=== PATIENT | female | born 1990 ===

== ENCOUNTER 2025-06-15 15:51 | Emergency (ER) | payer OTHER, SELFPAY ==
--- OUTSIDE RECORDS SUMMARY | 2025-06-15 15:53 | XMS_ITS | Data Portability ---
Author Organization [facility] [employer] Pritesh freitas [facility] Address [address] [place] [address] [place] [address] Assessment No assessment recorded. Plan of Treatment Reminders Order Date Submit Date Provider Last Modified By Organization Details Last Modified Time Details Appointments None recorded. Lab None recorded. Referral None recorded. Procedures None recorded. Surgeries None recorded. Imaging None recorded. Medication Orders dexamethaso ne 4 mg tablet [address], [address], 14:26:27 Patient TargetsNo targets recorded. Patient InstructionsNo instructions recorded. Reason for Referral None Reported. Medical Equipment None Reported. Medications Name Sig Start Date Stop Date Status Note LastModified by Organization Details LastModified Time dexamethason e 4 mg tablet TAKE 1 TABLET BY MOUTH EVERY DAY FOR 2 DAYS, NEEDED, FOR PERSISTENT HEADACHES. active Not Available Not Available N ot Available Vitals Date Recorded Oxygen saturation Oxygen saturation in Arterial blood by Pulse oximetry Heart rate Body temperature Body height Body mass index (BMI) Body weight Systolic And Diastolic Provider Name and Address Organization Details Last Updated DateTime 5 99 % 99 % 84 /min 98.5 [degF] 163.83 cm 31.1 kg/m2 57254.3 6 g 93/66 mm[Hg] Carisa Gold [facility] [employer] Benji 5 12:25:56 Social History None recorded. Functional Status None recorded. Mental Status None recorded. Family History Nothing Reported. Medical History No medical history recorded. Gynecological HistoryNo gynecological history recorded. Obstetrics History GPAL:G 0 P 0 0 0 0 Immunizations Vaccine Type Date Status Note Provider Josué Address Organization Details Recorded Time Hep B, adolescent or pediatric 6 completed Not Available [facility] 02/07/2025 12:14:48 MMR 6 completed Not Available [facility] 02/07/2025 12:14:48 Tdap 6 completed Not Available [facility] 02/07/2025 12:14:48 DTaP 0 completed Not Available [facility] 02/07/2025 12:14:48 DTaP 1 completed Not Available [facility] 02/07/2025 12:14:48 DTaP 1 completed Not Available [facility] 02/07/2025 12:14:48 Td (adult), 2 Lf tetanus toxoid, preservative free, adsorbed 1 completed Not Available [facility] 02/07/2025 12:14:48 polio, unspecified formulation 0 completed Not Available [facility] 02/07/2025 12:14:48 polio, unspecified formulation 1 completed Not Available [facility] 02/07/2025 12:14:48 polio, unspecified formulation 1 completed Not Available [facility] 02/07/2025 12:14:48 polio, unspecified formulation 1 completed Not Available [facility] 02/07/2025 12:14:48 MMR 1 completed Not Available [facility] 02/07/2025 12:14:48 Hep B, adolescent or pediatric 6 completed Not Available [facility] 02/07/2025 12:14:48 Hep B, adolescent or pediatric 6 completed Not Available [facility] 02/07/2025 12:14:48 Influenza, split virus, trivalent, preservative 9 completed Not Available [facility] 02/07/2025 12:14:48 Novel [id number] , all formulations 9 completed Not Available [facility] 02/07/2025 12:14:48 Tdap 9 completed Not Available [facility] 02/07/2025 12:14:48 Influenza, split virus, quadrivalent, preservative 9 completed Not Available [facility] 02/07/2025 12:14:48 COVID-19, mRNA, LNP-S, PF, 30 mcg/0.3 mL dose 1 completed Not Available [facility] 02/07/2025 12:14:48 COVID-19, mRNA, LNP-S, PF, 30 mcg/0.3 mL dose 2 completed Not Available [facility] 02/07/2025 12:14:48 Past Encounters Encounter ID Performer Location Encounter Start Date Encounter Closed Date Diagnosis/Indication Diagnosis SNOMED-CT Code Diagnosis ICD10 Code Diagnosis IMO Codes Diagnosis Note [id number] Pam Dixon MD [facility] [address] [place] [address] 02/07/2025 12:13:17 02/07/2025 13:02:16 Migraine 26746851 G43.909 24888 - discussed options (triptan, steroid for long-lasti ng symtpoms, APAP, sleep)- would like to trial short course of steroids, will let me know if ineffectiv e History an d physical examination, annual for health maintenance 61721662 Z00.00 289842 - feeling good, defers annual labs- mammograms at 40, pap and Mirena swap 2025 Health Concerns Section Related Observation LastModified by Organization Detai ls LastModified Time None Recorded Concern Status LastModified by Organization Details LastModified Time None Recorded Advance Directives Directive None Recorded Payers Insurance Date Sequence Insurance Name Policy Number Policy Plasencia Covered Member ID Plasencia Member ID Guarantor Name 12/09/2024 SLIDING FEE SCHEDULE - DISCOUNT Montserrat Fleming Notes Date Note Type Note Provider Name and Address Organization Details Recorded Time 02/07/2025 text/html ROS as noted in the HPI Montserrat is in for annual exam.Previously seen at [facility], chart reviewed.Genera lly healthy.Has had Mirena in since 2019, last pap in 2020 and wnl.Due for repeat pap + Mirena change next year. Notes a history of headaches/migra albino that occur 2-3 times/year. Sleep tends to help when symptoms are severe (not always possible at home with children; also works at a [employer] with early hours). Pam Dixon MD [address] [place], [address], [facility] - [facility] 02/07/2025 15:45:28 OBGyn Episode No OBEpisode recorded.
--- OUTSIDE RECORDS SUMMARY | 2025-06-15 15:53 | XMS_ITS | Clinical Summary ---
Author Organization [facility] Address [address] [place] [address] Care Team Providers Care History Faculty Member Name Role Phone Clinic, [facility]ider Allergies No known active allergies Medications acetaminophen (TYLENOL EXTRA STRGTH) 500 mg tabletIndicati ons:S/P Take 2 tablets by mouth every 6 hours if needed (mild pain). Max acetaminophen dose: 4000mg in 24 hrs. 60 tablet 07/10/2019 10:22 AM CDT 9 Active ibuprofen (ADVIL; MOTRIN) 600 mg tabletIndicati ons:S/P Take 1 tablet by mouth every 6 hours if needed for uterine cramping. Take with food. 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 Plan: Routine Screening Resolved Problems Problem Noted Date Diagnosed Date Resolved Date Breech presentation of fetus delivered 07/08/2019 06/03/2021 care, subsequent pr egnancy in third trimester 06/06/2019 06/03/2021 Low grade squamous intraepit helial lesion (LGSIL) on cervical Pap smear 07/12/2014 09/08/2017 Overview (12/03/2015): 11/25/2015 Pap: NIL; Plan: repeat pap test in one year (Due 11/2016) Immunizations Immunization Administration Dates Next Due DTaP 01/11/1991,1990,1990 Hepatitis B (Peds) 08/16/2006,06/16/2006, 006 Influenza A (H1N1), Live Intranasal 08/12/2009 Influenza, IIV3 (Age >=3 years) 07/14/2009 Influenza, IIV4 (=>6mos) MDV 06/06/2019 MMR 04/19/2006,08/28/1991 Polio Virus, Unspecified 08/28/1991,11/1990,1990, 990 Td (Age >=7 Years) 08/28/1991 Tdap 05/09/2019,04/19/2006 Family History Medical History Relation Name Comments Good Health Brother Heart Disease Maternal Grandfather Obesity Maternal Grandmother Good Health Mother Good Health Sister Relation Name Status Comments Brother Alive Father (Age 47) HIV Maternal Grandfather Alive Maternal Grandmother Mother Alive Paternal Grandfather Paternal Grandmother Sister Alive Social History Tobacco Use Types Packs/Day Years Used Date Smoking Tobacco: Never Smokeless Tobacco: Never Tobacco Cessation:Counseling Given: Yes Alcohol Use Standard Drinks/Week Comments No 0 (1 standard drink = 0.6 oz pur e alcohol) PHQ-2 Answer Date Recorded PHQ-2 TOTAL SCORE 1 06/03/2021 Social Connections Answer Date Recorded Frequency of Communication with Friends and Fami ly Not on file 12/11/2023 Financial Resource Strain Answer Date R ecorded Difficulty of Paying Living Expenses 3 12/02/2022 Difficulty of Paying Living Expenses Not on file 12/02/2022 Food Insecurity Answer Date Recorded Worried About Running Out of Food in the Last Ye ar 1 12/02/2022 Transportation Needs Answer Date Record ed Lack of Transportation (Medical) 1 12/02/2022 Housing Stability Answer Date Recorded Unable to Pay for Housing in the Last Year 1 12/02/2022 Comments No Sex and Gender Information Value Date Recorded Sex Assigned at Not on file 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 Gender Identity Not on file Sexual Orientation Not on file Obstetrics History Para Term AB IAB SAB Ectopic Multiple Livin g Live Births 3 2 2 1 1 2 2 Date Outcome GA Total Labor Labor/2nd/3rd Weight Sex Type Anes PTL Hannah A1 A5 Name Clin SAB SPONTA NEOUS 2008 Term 40w 1d M Vag-Sp ont Livin g 2018 Term 39w 0d 3.47 kg (7 lb 10.4 oz) M CS-LTr anv Genera l N Livin g [address] MD Complications:Delivery by em ergency (HC) Delivery Location:[facility]) Comments:Emergent cesa rean section for unidentified breech presentation Last Filed Vital Signs Vital Sign Reading Time Taken Comments Blood Pressure 116/74 12/02/2022 2:28 PM CDT Pulse 77 12/02/2022 2:28 PM CDT Temperature 37.2 C (99 F) 12/02/2022 2:28 PM CDT Respiratory Rate 16 07/11/2019 7:15 AM CDT Oxygen Saturation 97% 12/02/2022 2:28 PM CDT Inhaled Oxygen Concentration - - Weight 82.8 kg (182 lb 9.6 oz) 12/02/2022 2:28 P M CDT Height 161.5 cm (5' 3.58) 06/03/2021 3:30 PM CD T Body Mass Index 31.76 06/03/2021 3:30 PM CDT Plan of Treatment Health Maintenance Due Date Last Done Comments Depression screening for age 12+ 2002 HPV series for age 9-45 (1 - 3-dose SCDM series) 2017 BMI (ht and wt on same day) for age 18+ 06/03/2022 06/03/2021, 07/08/2019, 06/20/2019, Additional history exists COVID-19 vaccine series ( - 2024- season) 2025 10/06/2021, 08/19/2021 Influenza Vaccine (#1) 2025 06/06/2019, 2008 Pap test for age 21-65 06/03/2026 , 06/03/2021, 08/18/2017, Additional history exists Tetanus booster 05/09/2029 05/09/2019, 08/0 05/2006, 08/28/1991 RSV vaccine for adults or (1 - 1-dose 75+ series) 2065 Hepatitis B series for 19+ Completed 08/16, 06/16/2006, 04/19/2006 HIV for age 15-65 Completed 11/29/2018, 03/15/2013 Hepatitis C screening for age 18-79 Completed 11/29/2018 Pneumococcal series for age 6-49 Aged Out No longer eligible based on patient's age to complete this topic Procedures Procedure Name Priority Date/Time Associated Diagnosis Comments ELECTRICAL ASSISTANT THIN PREP PAP SCREEN IMAGED Routine 06/03/2021 3:46 PM CDT Screening for malignant neoplasm of cervix ANTI HIV 1/2 Routine 11/29/2018 10:34 AM CDT care of multigravida, antepartum (HC) ANTI HCV Routine 11/29/2018 10:34 AM CDT care of multigravida, antepartum (HC) from Last 3 Months or Most Recently Relevant to Health Maintenance Results * ELECTRICAL ASSISTANT THIN PREP PAP SCREEN IMAGED (06/03/2021 3:46 PM CDT) Case Report Gynecologic Cytology Report Case: [id number] Authorizing Provider: Shanna Boykin PA Collected: 06/03/2021 1546 Ordering Location: [facility] Received: 06/03/2021 1608 Clinic First Screen: Ronny Abdalla Rescreen: Callie Martinez Specimen: ELECTRICAL ASSISTANT ThinPrep Vial Screening, Cervical 06/21/2021 2:29 PM CDT [facility] INTERPRETATION/ RESULT NEGATIVE FOR INTRAEPITHELIAL LESION OR MALIGNANCY (NIL) (none) 06/21/2021 2:29 PM CDT [facility] at 1429 CDT SPECIMEN ADEQUACY Satisfactory for evaluation No endocervical component seen 06/21/2021 2:29 PM CDT [facility] ENTRAL LABORATORY HPV REQUEST HPV and PAP 06/21/2021 2:29 PM CDT [facility] Date of LMP 05/24/21 06/21/2021 2:29 PM CDT [facility] Last Pap Date 08/18/17 06/21/2021 2:29 PM CDT [facility] Last Pap Result NIL 2:29 PM CDT [facility] Abnormal Pap or [place] Bx in last 5 years No 06/21/2021 2:29 PM CDT [facility] Menstrual Status Irregular Periods 06/21/2021 2:29 PM CDT [facility] [place] Bx Done Today No 06/21/2021 2:29 PM CDT [facility] Additional Information None given 06/21/2021 2:29 PM CDT [facility] Comment: Cytology is screened at [facility] - [address] [address] and [facility] - [address] [place] [address] and [facility] - [address] [place] [address] Interpreted at [facility] - [address], [place] [address] Automated Review Successful 06/21/2021 2:29 PM CDT [facility] Comment:Specimen processed s uccessfully by automated security sales consultant device, ThinPrep Imaging System, [employer] ANCILLARY TESTING ELECTRICAL ASSISTANT HPV Ordered, Please see separate report 06/21/2021 2:29 PM CDT [facility] Note The pap test is a screening technique, not a diagnostic procedure. It is used primarily to screen for squamous cancers and precursor lesions. Published studies have shown that it is subject to both false negative and false positive results. The pap test should not be used as the sole means to diagnose or exclude pre-malignant and malignant lesions. 06/21/2021 2:29 PM CDT [facility] Other (Cervical) Non-Blood / Unknown 06/03/2021 3:46 PM CDT 06/03/2021 4:08 PM CDT Shanna MAYA PATHOLOGY/CYTOLOGY Final R esult [facility] [address] [place] [address], [place] * ANTI HCV (11/29/2018 10:34 AM CDT) HEPATITIS C ANTIBODY Non-React lillie Non-React lillie 11/29/2018 4:19 PM CDT [facility] TR[facility] LABORATORY Comment:Antibodies to HCV no t detected; does not exclude the possibility of exposure to HCV. Blood BLOOD SPECIMEN / Unknown Venipuncture / Unknown 11/29/2018 10:34 AM CDT 11/29/2018 10:39 AM CDT Naida Dinero MD SEND OUTS Final Result Performing Organization Address City/[facility]/ZIP Co de Phone Number [facility] [address] [place] [address], [place] * ANTI HIV 1/2 (11/29/2018 10:34 AM CDT) Pathologist [facility] HIV-1/HIV-2 ANTIBODY Non-Reacti ve Non-Reacti ve 11/29/2018 4:20 PM CDT [facility] TR[facility] Comment:HIV-1 p24 and HIV-1/ HIV-2 Ab not detected. Blood BLOOD SPECIMEN / Unknown Venipuncture / Unknown 11/29/2018 10:34 AM CDT 11/29/2018 10:39 AM CDT Naida Dinero MD SEND OUTS Final Result [facility] [address] [place] [address], [place] from Last 3 Months or Most Recently Relevant to Health Maintenance Insurance [facility] * Guarantor: [employer] Account Type Relation to Patient Date of Phone Billing Address [facility] 2000 ATTN VERONICA SZYMANSKI [address] [place] [phone] Advance Directives * Full Code (Latest Code Status on File) Date Activated Date Inactivated Comments 07/08/2019 8:46 PM 07/11/2019 2:51 PM Care Teams History Faculty Member Relationship Specialty Start Date End Date Clinic, [facility] [address] [facility] [place] [place] [address] PCP - General 04/28/21
[2025-06-15 15:58] VITALS: BP 128/79; PULSE 78; RESP 16; TEMP 36.6; O2SAT 97; BMI 32.9
--- NOTE | 2025-06-15 16:26 | CRLHL7_ITS ---
For Patients: As a result of the Century Cures Act, medical imaging exams and procedure reports are released immediately into your electronic medical record. You may view this report before your referring provider. If you have questions, please contact your health care provider. Indication: RIGHT FLANK PAIN Technique: CT abdomen/pelvis without IV contrast Comparison: None Findings: Lower thorax: Unremarkable Abdomen/pelvis: The liver, gallbladder and biliary system, spleen, pancreas, adrenal glands, kidneys, ureters, bladder, uterus, and bilateral ovaries are unremarkable. No bowel obstruction or inflammation. The appendix is normal. No free air, free fluid, or fluid collections. No abdominopelvic lymphadenopathy. The vasculature is unremarkable. Soft tissue/musculoskeletal: Diastasis recti with tiny fat containing umbilical hernia. Small calcified granuloma in the subcutaneous fat of the left posterior pelvis. The bones are unremarkable. Impression: No CT evidence of an acute process involving the abdomen or pelvis. Please note that all CT scans at this facility use dose modulation, iterative reconstruction, and/or weight-based dosing when appropriate to reduce radiation dose to as low as reasonably achievable. Dictated by Wilver Garrett MD @ 06/15/2025 5:18:03 PM (Electronically Signed)
[2025-06-15 16:46] LABS: Appearance Urine Clear (Clear)
[2025-06-15 16:47] LABS: Ur HCG Qualitative* Negative (Negative)
--- NOTE | 2025-06-15 16:54 | ED_ITS ---
HPI - General Adult General Chief complaint: Flank Pain Stated complaint: Right abdominal pain Time Seen by Provider: 06/15/25 16:20 History of Present Illness HPI narrative: This 35-year-old female comes in reporting right flank pain that sometimes comes into her right abdomen. She does not report any nausea or vomiting. She states that she seems to be urinating more frequently. She does not report any fevers. She has no personal history of kidney stones and is uncertain if there is any family history of such. Related Data Home Medications ?Medication ?Instructions ?Recorded ?Confirmed No Known Home Medications 04/11/250 02/02 Allergies Allergy/AdvReac Type Severity Reaction Status Date / Time No Known Drug Allergies Allergy Verified 04/11/25 14:55 Review of Systems Status of ROS: Reports: 10 or more systems reviewed and unremarkable except as noted in History and below Narrative: Constitutional: No fevers, no weight gain or loss. Eyes: No discharge. No vision changes. HENT: No congestion, no sore throat, no ear pain. Cardiovascular: No chest pain, no palpitations. Respiratory: No shortness of breath, no wheezes, no cough. Gastrointestinal: No vomiting, no diarrhea. Right flank pain into the right abdomen as described above. Genitourinary: No dysuria, no hematuria. Musculoskeletal: Normal range of motion. Skin: No rashes, no pruritis. Neurological: No dizziness, weakness, sensory change, speech change. Endo/Heme/Allergies: No bruising or bleeding. No polydipsia. Pysch: no suicidality, no anxiety, no insomnia. All other systems reviewed and are negative. PFSH PFSH Social History Smoking Status: Never smoker Do you use any of these nicotine containing products: None Second hand tobacco smoke exposure: No How often do you have a drink containing alcohol: never How often do you have six or more drinks on one occasion: Never AUDIT-C Alcohol total score: 0 Non-prescribed substance use: denies use service: No Exam Narrative: Exam Narrative: Constitutional: Well-developed, well-nourished, no acute distress. HEENT: Normocephalic, atraumatic. Neck: Normal range of motion. Nontender. Supple. Heart: Regular. No murmurs. Normal rate. Intact distal pulses. Lungs: Clear to auscultation. No chest discomfort. No wheezes, rhonchi, or rales. Abdomen: Normal bowel sounds. Right flank pain is reproduced when tapping over her right kidney. Genitalia: Deferred. Back: No midline tenderness. Normal range of motion. Extremities: Normal range of motion. No injury. Skin: Intact. No rash. Warm. No erythema or pallor. Neurologic: No altered sensation. No weakness. Alert and oriented. Psychiatric: No suicidality. No anxiety or depression. No insomnia. Nursing notes and vitals signs are reviewed. Const: Vital Signs, click to edit/add: Vital Signs - 24 hr 06/15/25 15:58 Temperature 97.8 F Pulse Rate [Pulse Oximeter] 78 Respiratory Rate 16 Blood Pressure [Ri ght Upper Arm] 128/79 Pulse Oximetry 97 Oxygen Delivery Me thod Room Air Course Vital Signs Vital signs: Initial Vital Signs Temperature 97.8 F 06/15/25 15:58 Temperature Source Temporal Artery Scan 06/15/25 15:58 Pulse Rate 78 06/15/25 15:58 Respiratory Rate 16 06/15/25 15:58 Blood Pressure 128/79 06/15/25 15:58 Blood Pressure Mean 95 06/15/25 15:58 Blood Pressure Position Sitting 06/15/25 15:58 Pulse Oximetry 97 06/15/25 15:58 Oxygen Delivery Method Room Air 06/15/25 15:58 Vital Signs Temperature 97.8 F 06/15/25 15:58 Pulse Rate 78 06/15/25 15:58 Respiratory Rate 16 06/15/25 15:58 Blood Pressure 128/79 06/15/25 15:58 Pulse Oximetry 97 06/15/25 15:58 Oxygen Delivery Method Room Air 06/15/25 15:58 Temperature 97.8 F 06/15/25 15:58 Pulse Rate 78 06/15/25 15:58 Respiratory Rate 16 06/15/25 15:58 Blood Pressure 128/79 06/15/25 15:58 Pulse Oximetry 97 06/15/25 15:58 Oxygen Delivery Method Room Air 06/15/25 15:58 Medical Decision Making MDM Narrative Medical decision making narrative: This patient comes in reporting right flank pain that sometimes radiates into her right abdomen. I did obtain a CT scan of her abdomen and pelvis and this returns with no findings to explain these symptoms. Additionally urinalysis is negative for infection and hematuria. These findings are reassuring to the patient who is okay to be discharged home. I did provide a [employer] pres cription for Toradol. Lab Data Labs: Lab Results 06/15/25 Range/Units 16:37 Urine Color Yellow (Yellow) Urine Appearance Clear (Clear) Urine pH 6.5 (5.0-8.5) Ur Specific [place] 1.010 (1.000-1.030) Urine Protein Negative (Negative) Urine Glucose (UA) Negative (Negative) Urine Ketones Negative (Negative) Urine Blood Trace-intact A (Negative) Urine Nitrite Negative (Negative) Urine Bilirubin Negative (Negative) Urine Urobilinogen 0.2 (0.2-1.0) Ur Leukocyte Esterase Negative (Negative) Urine RBC 0-2 (0-2) Urine WBC 0-2 (0-5) Ur Squamous Epith Cells None (None-Few) Urine Bacteria None (None) Urine HCG, Qual Negative (Negative) Imaging Data CT scan - abdomen: Radiologist's impression: No CT evidence of an acute process involving the abdomen or pelvis. Discharge Plan Discharge Clinical Impression: Flank pain Patient Disposition: Home, Self-Care Condition: Stable Additional Instructions: take medication as prescribed and needed. Follow up with MD return if worsening. Prescriptions: No Action No Known Home Medications Follow Up/Referrals: Provider,Not a Local [Primary Care Provider, Family Practice] Stand Alone Forms: [employer] Info Instructions
[2025-06-15 17:49] VITALS: BP 129/75
== END 2025-06-15 17:50 | disposition home or self-care (01) ==
PROVIDERS: Emergency Provider Emergency Medicine Emergency Medical Services
DX: R10.11 Right upper quadrant pain (principal)
CPT/HCPCS: 74176; 81001; 81025; 99283; 99284

== ENCOUNTER 2025-07-21 12:54 | Outpatient (CLI) | payer OTHER, SELFPAY | END 2025-07-21 12:55 | disposition home or self-care (01) | LOC: NFLDREF 07-25 03:03 | DX: N30.01 Acute cystitis with hematuria (principal) | CPT/HCPCS: 87086 ==

== ENCOUNTER 2025-08-14 15:16 | Outpatient (CLI) | payer OTHER, SELFPAY | END 2025-08-14 15:17 | disposition home or self-care (01) | LOC: NFLDREF 15:19 | PROVIDERS: Visit Provider Obstetrics & Gynecology | DX: O20.9 Hemorrhage in early pregnancy, unspecified (principal) | CPT/HCPCS: 84702; 86850; 86900; 86901 ==

== ENCOUNTER 2025-08-19 11:03 | Outpatient (CLI) | payer OTHER, SELFPAY ==
--- NOTE | 2025-08-19 11:30 | CRLHL7_ITS ---
For Patients: As a result of the Century Cures Act, medical imaging exams and procedure reports are released immediately into your electronic medical record. You may view this report before your referring provider. If you have questions, please contact your health care provider. OB ULTRASOUND INDICATION: Bleeding in early . TECHNIQUE: Real time grayscale imaging of the fetus was performed. Transvaginal. Transvaginal imaging performed to better demonstrate the endometrium and ovaries. Surgery: x 2. LMP: 07/06/2025. MARCIA by LMP: 04/12/2026. GA: 6 w, 2 d. Previous US: No. CRL: 0.7 cm. 6 w 4 d. MARCIA: 04/10/2026. FHR: 113 BPM. Gestational sac: 2.4 cm. Appears within normal limits. Yolk sac: 2 mm. Appears within normal limits. Right ovary: Within normal limits. 4.8 x 3 x 2.9 cm. CL. Left ovary: Within normal limits. 2.8 x 1.5 x 1.4 cm. IMPRESSION: 1. Single living intrauterine measures 6 weeks 4 days and sonographic due date 04/10/2026. 2. Simple right ovarian cyst measures 3.8 x 2.5 x 2.7 cm. 3. Subchorionic hemorrhage measures 1.2 x 0.8 x 2.3 cm. Yogesh Mccullough M.D. Diagnostic Radiologist [email or web address] by: Yogesh Mccullough MD @ 08/19/2025 12:15:00 PM (Electronically Signed)
== END 2025-08-19 11:04 | disposition home or self-care (01) ==
LOC: US 11:03
PROVIDERS: Visit Provider Obstetrics & Gynecology
DX: O20.9 Hemorrhage in early pregnancy, unspecified (principal); O34.81 Maternal care for other abnormalities of pelvic organs, first trimester; N83.291 Other ovarian cyst, right side; Z3A.01 Less than 8 weeks gestation of pregnancy
CPT/HCPCS: 76817